=== PATIENT | male | born 1965 | race Caucasian/White ===

== ENCOUNTER 2017-02-10 13:03 | Inpatient (IN) | payer OTHER ==
[~2017-02-10] VITALS: Ht 175.3 cm; Wt 86.6 kg
--- NOTE | ~2017-02-10 | DS ---
Discharge Summary [facility] [address] [place]. [address] NAME: SHIRLEY MENSAH : 63 STATUS : DIS IN [facility]#: [id number] AGE: 51 ADM/REG DATE : 02/10/17 MR#: [id number] REPORT SERV DATE: 02/13/17 DICTATED BY: TUTU YOUNGBLOOD DATE: 02/12/17 REPORT STATUS : Draft TRANSCRIBED BY: MODL DATE: 02/12/17 ADMISSION DATE: 02/10/2017 DISCHARGE DATE: 02/12/2017 DISCHARGE DIAGNOSES: 1. Left lower lobe pneumonia, postobstructive, improving. 2. 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 3. Chronic obstructive pulmonary disease. 4. Hypertension. 5. Anxiety. CONSULTATIONS: Pulmonary, LINDA Schmitt. PROCEDURES AND IMAGING: CT biopsy, liver, 02/11/2017, impression, successful CT-guided biopsy of one of many hepatic lesions. Pathology report indicates findings are positive for malignancy. LABORATORY DATA: WBC 13.6, hemoglobin 11.9, hematocrit 35.1, platelet count is 169. Sodium is 129, potassium is 4.1, chloride is 93, CO2 is 26, BUN is 6, creatinine is 0.32, glucose is 82, and calcium is 9.3. COURSE OF HOSPITAL STAY: Please refer to history and physical dictated by Dr. Miguel Hernández on 02/08/2017 for complete admission details as well as consultation note of Dr. Becker on 02/08/2017. This patient is a 51-year-old male, who presented in [facility] with complaints of dyspnea, nonproductive cough, and malaise lasting greater than three weeks. The patient stated that he had been followed by his primary care, but had not improved. Upon admission to the emergency room, chest x-ray revealed left lower lobe pneumonia, serum sodium of 125. The patient did say he had been on antibiotics previous to this admission. 1. Left lower lobe pneumonia, postobstructive. As noted above, imaging was obtained. The patient was initially admitted in [facility]. IV antibiotics were initiated. CT imaging was obtained, which showed left lower lobe consolidated mass. There is also mediastinal and left hilar adenopathy. The patient was transferred to [facility] for possible bronchoscopy. 2. Lung mass with liver lesion, positive malignancy, status post CT biopsy, 02/11/2017. As noted above, the patient was transferred to [facility] for possible bronchoscopy. Pulmonology was consulted to see. Per their recommendation, the patient did undergo a CT biopsy of the liver, which is noted above, which was positive malignancy. The patient has been scheduled for a new patient appointment with Dr. Anglin on 02/17/2017. The patient did state understanding and agreed with this treatment plan. 3. COPD. The patient noted with COPD. Inhalers were initiated during his hospital stay. Prescriptions were provided and instructions on use prior to discharge. The patient will follow up with Pulmonology in three to four weeks. Discharge Summary [address] [address] NAME: SHIRLEY MENSAH : 63 STATUS : DIS IN [facility]#: [id number] AGE: 51 ADM/REG DATE : 02/10/17 MR#: [id number] REPORT SERV DATE: 02/13/17 DICTATED BY: TUTU YOUNGBLOOD DATE: 02/12/17 REPORT STATUS : Draft TRANSCRIBED BY: ABNER DATE: 02/12/17 4. Hypertension. The patient's blood pressure has been monitored, continued on home medications. We will continue on medications upon discharge. No changes noted with prescriptions. 5. Anxiety. The patient has been on home medication during this stay. No dosing or medication changes noted. DISCHARGE MEDICATIONS: 1. Celexa 40 mg one p.o. daily. 2. Levaquin 750 mg one p.o. daily. 3. Losartan 100 mg one p.o. daily. 4. Dulera 200 mcg/5 mcg inhaler two puffs inhaled twice daily. 5. Naproxen 500 mg one p.o. daily. 6. Spiriva inhaler one cap inhaled daily. 7. Ultram 50 mg one p.o. every six hours p.r.n. for pain. This discharge took greater than 30 minutes. [facility] Xochitl R. Srikanth, [employer]MER Tutu Youngblood M.D. / [id number] CC: Tutu Youngblood M.D.
[~2017-02-10 13:03] MED LIST: ALEVE220 MG PO; CELEBREX2 PO; CELEXA40 MG PO; COZAAR100 MG PO; DIOV80 PO; FISH-EPA1000 MG PO; NAP500 PO; OMNICEF300 PO; ULTRAM50 PO; V5 PO
[2017-02-11 11:42] LABS: HEMATOCRIT 36.8 % (40.0-51.0); HEMOGLOBIN 12.3 g/dL (13.6-17.8); MEAN CORPUS HGB CONC 33.4 g/dL (32.0-36.0); MEAN CORPUSCULAR HEMOGLOB 28.9 pg (26.0-34.0); MEAN CORPUSCULAR VOLUME 86.6 fL (80-100); MEAN PLATELET VOLUME 8.8 fL (9.2-13.0); PLATELET COUNT 169 10/3/uL (150-400); RBC DISTRIBUTION WIDTH 14.2 % (12.0-16.0); RED CELL COUNT 4.25 10/6/uL (4.7-6.1); WHITE BLOOD CELLS 12.6 10/3/uL (4.5-10.5)
[2017-02-11 11:46] LABS: MANUAL DIFF YES %
[2017-02-11 11:47] LABS: INTERNATIONAL NORMAL RATI 1.2 UNITS (-)
[2017-02-11 11:56] LABS: BUN (BLOOD UREA NITROGEN) 6 MG/DL (6-23); CALCIUM, SERUM 9.1 MG/DL (8.5-10.4); CHLORIDE, SERUM 98 MMOL/L (96-112); CO2 (CARBON DIOXIDE) 24 MMOL/L (24-34); CREATININE 0.36 MG/DL (0.70-1.30); GFR AFRICAN AMERICAN 165 ML/MIN (>=60); GFR NON AFRICAN AMERICAN 143 ML/MIN (>=60); GLUCOSE, SERUM 68 MG/DL (60-99); PHOSPHORUS, SERUM 3.3 MG/DL (2.5-4.5); POTASSIUM, SERUM 4.1 MMOL/L (3.5-5.3); SODIUM, SERUM 133 MMOL/L (135-148)
[2017-02-11 12:05] LABS: BAND NEUTROPHILS 7 %; EOSINOPHILS 1 %; EOSINOPHILS ABSOLUTE (CALC) 0.13 10/3/uL (0.0-0.53); IMMATURE GRANS ABSOLUTE (CALC) 0.13 10/3/uL (0.0-0.11); LYMPHOCYTES 7 %; LYMPHOCYTES ABSOLUTE (CALC) 0.88 10/3/uL (0.67-4.30); METAMYELOCYTES 1 %; MONOCYTES 6 %; MONOCYTES ABSOLUTE (CALC) 0.76 10/3/uL (0.21-1.20); NEUTROPHILS ABSOLUTE (CALC) 10.71 10/3/uL (2.02-8.40); PLATELET ESTIMATE ADQ (ADEQUATE); RBC MORPHOLOGY NORM (NORMAL); SEGMENTED NEUTROPHIL (0) 78 %; TOTAL NUCLEATED CELLS 100
[2017-02-12 08:29] LABS: HEMATOCRIT 35.1 % (40.0-51.0); HEMOGLOBIN 11.9 g/dL (13.6-17.8); MANUAL DIFF YES %; MEAN CORPUS HGB CONC 33.9 g/dL (32.0-36.0); MEAN CORPUSCULAR HEMOGLOB 29.2 pg (26.0-34.0); MEAN CORPUSCULAR VOLUME 86.2 fL (80-100); PLATELET COUNT 169 10/3/uL (150-400); RBC DISTRIBUTION WIDTH 14.4 % (12.0-16.0); RED CELL COUNT 4.07 10/6/uL (4.7-6.1); WHITE BLOOD CELLS 13.6 10/3/uL (4.5-10.5)
[2017-02-12 08:38] LABS: BUN (BLOOD UREA NITROGEN) 6 MG/DL (6-23); CALCIUM, SERUM 9.3 MG/DL (8.5-10.4); CHLORIDE, SERUM 93 MMOL/L (96-112); CO2 (CARBON DIOXIDE) 26 MMOL/L (24-34); CREATININE 0.32 MG/DL (0.70-1.30); GFR AFRICAN AMERICAN 173 ML/MIN (>=60); GFR NON AFRICAN AMERICAN 150 ML/MIN (>=60); POTASSIUM, SERUM 4.1 MMOL/L (3.5-5.3); SODIUM, SERUM 129 MMOL/L (135-148)
[2017-02-12 08:40] LABS: GLUCOSE, SERUM 82 MG/DL (60-99)
[2017-02-12 09:37] LABS: BAND NEUTROPHILS 8 %; BASOPHILS 1 %; BASOPHILS ABSOLUTE (CALC) 0.14 10/3/uL (0.0-0.16); EOSINOPHILS 1 %; EOSINOPHILS ABSOLUTE (CALC) 0.14 10/3/uL (0.0-0.53); IMMATURE GRANS ABSOLUTE (CALC) 0.68 10/3/uL (0.0-0.11); LYMPHOCYTES 7 %; LYMPHOCYTES ABSOLUTE (CALC) 0.95 10/3/uL (0.67-4.30); METAMYELOCYTES 4 %; MONOCYTES 7 %; MONOCYTES ABSOLUTE (CALC) 0.95 10/3/uL (0.21-1.20); MYELOCYTES 1 %; NEUTROPHILS ABSOLUTE (CALC) 10.74 10/3/uL (2.02-8.40); SEGMENTED NEUTROPHIL (0) 71 %; TOTAL NUCLEATED CELLS 100
[2017-02-12 09:38] LABS: HELMET CELLS OCC (0-2/OIF); PLATELET ESTIMATE ADQ (ADEQUATE); POIKILOCYTOSIS 1+ (5-10/OIF) (0-5/OIF); SCHISTOCYTES OCC (0-2/OIF); TOXIC GRANULATION 1+
[2017-02-12 09:39] LABS: VACUOLATED NEUTROPHILES 1+
[2017-02-12] MEDS ORDERED: LEVAQUIN750 MG PO (10:54)
[2017-02-12] MEDS ORDERED: SPIRIVA INH (10:56)
[2017-02-12] MEDS ORDERED: DULERA 200 MCG/13 GM INH (10:56)
== END 2017-02-12 12:03 | disposition home or self-care (01) | DRG 180 ==
LOC: ENRESERV → ENRESERVTM → ENRESERVDT → 4EA 17:05
PROVIDERS: Physician Assistant Medical
PROC: 0FB03ZX Excision of Liver, Percutaneous Approach, Diagnostic (ICD-10-PCS; principal; 2017-02-11)
DX: C34.32 Malignant neoplasm of lower lobe, left bronchus or lung (principal); J18.9 Pneumonia, unspecified organism; C78.7 Secondary malignant neoplasm of liver and intrahepatic bile duct; J44.0 Chronic obstructive pulmonary disease with (acute) lower respiratory infection; E87.1 Hypo-osmolality and hyponatremia; I10 Essential (primary) hypertension; R63.4 Abnormal weight loss; F17.210 Nicotine dependence, cigarettes, uncomplicated; E78.5 Hyperlipidemia, unspecified; F32.9 Major depressive disorder, single episode, unspecified; Z79.891 Long term (current) use of opiate analgesic; F41.9 Anxiety disorder, unspecified
CPT/HCPCS: 47000; 77012; 80048; 83735; 84100; 85025; 85610; 88307; 88333; 88341; 88342; 94640; A9270-GY; J2250; J3010